=== PATIENT | female | born 1950 | race Caucasian/White ===

== ENCOUNTER 2024-02-04 07:49 | Emergency (ER) | payer BC, SELFPAY ==
[2024-02-04 07:58] VITALS: BP 119/73; PULSE 68; RESP 18; TEMP 36.2; O2SAT 95; BMI 43.0
--- NOTE | 2024-02-04 08:21 | CRLHL7_ITS ---
For Patients: As a result of the Century Cures Act, medical imaging exams and procedure reports are released immediately into your electronic medical record. You may view this report before your referring provider. If you have questions, please contact your health care provider. Indication: Low back pain Technique: Noncontrast axial CT of the lumbar spine with coronal and sagittal reformats. Comparison: None. Findings: The normal lumbar lordosis is preserved. No significant spondylolisthesis. Vertebral body heights are maintained. No acute fracture identified. Mild diffuse disc bulges in the lower lumbar levels, with mild facet arthropathy at L5-S1 contributing to mild bilateral L5-S1 neural foraminal narrowing. Remaining neural foramina and spinal canal appear widely patent. No suspicious findings in the prevertebral or paraspinal soft tissues. Included SI joints are unremarkable. Impression: 1. No evidence of acute fracture or traumatic malalignment in the lumbar spine. 2. Mild lower lumbar spondylosis as detailed. Please note that all CT scans at this facility use dose modulation, iterative reconstruction, and/or weight-based dosing when appropriate to reduce radiation dose to as low as reasonably achievable. Dictated by Liz Bo MD @ 02/04/2024 9:36:38 AM (Electronically Signed)
[2024-02-04] MEDS: KETOROLAC 30 MG/ML inj IM (08:35)
--- NOTE | 2024-02-04 09:03 | ED.BACK ---
HPI - Back Pain/Injury General Date Seen: 02/04/24 Chief Complaint: Back Injury/Pain Stated Complaint: back pain Time Seen by Provider: 02/04/24 08:01 Source: patient and family Mode of arrival: EMS Limitations: no limitations History of Present Illness HPI Narrative: Patient is a 73-year-old female presenting to emergency department today with her daughter. She is brought in by ambulance for back pain. She has frontotemporal dementia. Patient states she has been having back pain for quite a while now. Uncertain the exact length but states it got acutely worse yesterday and was so bad she could not get out of her chair. Her daughter came today to check on her and bring her to her dental appointment. Since the patient could not get out of the chair despite help from the daughter she called EMS to bring her to the emergency department. Patient states once police and EMS arrived the patient went from being very angry with the daughter to being very pleasant and then got up and walked with her walker. At this time patient states she is having pain in her low back but does not radiate anywhere else. Denies any injuries. Denies chest pain, shortness of breath, fevers, chills, urinary retention, saddle anesthesia, weakness, numbness. No other concerns noted. Her daughter is low concern that the patient is not adequately taking care of herself at home. The daughters an only child and is taking care both her mother and the patient's . The was recently diagnosed with frontotemporal dementia also, but the daughter states he refuses to accept it and expects the patient to take care of him. The patient's daughter does not believe she is able to at this time and is also concerned that the patient is in taking her medication as directed. She has tried to get her home health but has only been qualified for 1 hour a week so far. The patient had a recent primary care visit to try and help set up increased home health. Related Data Home Medications ?Medication ?Instructions ?Recorded ?Confirmed levothyroxine 25 mcg tablet 25 mcg PO QAM 02/04/24 02/04/24 metformin 500 mg tablet,extended 2,000 mg PO QPM 02/04/24 02/04/24 release 24 hr omeprazole 20 mg capsule,delayed 20 mg PO DAILY 02/04/24 02/04/24 release pioglitazone 15 mg tablet 15 mg PO DAILY 02/04/24 02/04/24 Allergies Allergy/AdvReac Type Severity Reaction Status Date / Time Penicillins Allergy Mild hives Verified 02/04/24 08:05 Review of Systems Status of ROS: Reports: 10 or more systems reviewed and unremarkable except as noted in History and below [facility] Social History Smoking Status: Smoker, status unknown Exam Narrative: Exam Narrative: Const: Well-nourished, Well-developed, in mild distress Eyes: PERRL, no conjunctival injection, and symmetrical lids HENT: Atraumatic external nose and ears. Moist mucous membranes. Neck: Symmetric, trachea midline, No thyromegaly. CVS: RRR, No murmurs or gallops. Peripheral pulses 2+ and equal in all extremities RESP: Unlabored respiratory effort. Clear to auscultation bilaterally. GI: Nontender/Nondistended, No rebound or guarding. MSK:Extremities w/o deformity, bilateral paraspinal back pain around L4 Skin: Warm, Dry. No rashes or lesions. Neuro: Normal Muscle tone, No focal neurological deficits. Psych: Awake, Alert, & Oriented x3. Appropriate mood and affect. Const: Vital Signs, click to edit/add: Vital Signs - 24 hr 02/04/24 07:58 Temperature 97.1 F L Pulse Rate [Pulse Oximeter] 68 Respiratory Rate 18 Blood Pressure [Ri ght Forearm] 119/73 Pulse Oximetry 95 Oxygen Delivery Me thod Room Air Course Vital Signs Vital signs: Initial Vital Signs Temperature 97.1 F L 02/04/24 07:58 Temperature Source Temporal Artery Scan 02/04/24 07:58 Pulse Rate 68 02/04/24 07:58 Respiratory Rate 18 02/04/24 07:58 Blood Pressure 119/73 02/04/24 07:58 Blood Pressure Mean 88 02/04/24 07:58 Blood Pressure Position Sitting 02/04/24 07:58 Pulse Oximetry 95 02/04/24 07:58 Oxygen Delivery Method Room Air 02/04/24 07:58 Vital Signs Temperature 97.1 F L 02/04/24 07:58 Pulse Rate 68 02/04/24 07:58 Respiratory Rate 18 02/04/24 07:58 Blood Pressure 119/73 12/16/24 07:58 Pulse Oximetry 95 02/04/24 07:58 Oxygen Delivery Method Room Air 02/04/24 07:58 Temperature 97.1 F L 02/04/24 07:58 Pulse Rate 68 02/04/24 07:58 Respiratory Rate 18 02/04/24 07:58 Blood Pressure 119/73 02/04/24 07:58 Pulse Oximetry 95 02/04/24 07:58 Oxygen Delivery Method Room Air 02/04/24 07:58 Medications Administered Medications: Discontinued Medications Generic Name Dose Route Start Last Admin Trade Name Александр PRN Reason Stop Dose Admin Ketorolac Tromethamine 30 mg 02/04/24 08:22 02/04/24 08:35 Ketorolac 30 Mg/Ml Inj IM 02/04/24 08:23 30 mg ONCE ONE Administration MDM - Back Pain/Injury MDM Narrative Medical decision making narrative: Patient is a 73-year-old female presenting for low back pain. Will do a CT scan to better evaluate. No acute injuries the but the patient is aware of. She has a frontotemporal dementia and has issues giving the best history. Will give her Toradol for pain as she had recently lab work done. construction services technician also consult at the daughter's request to try and help. Patient was able ambulate in the emergency department. CT scan shows no acute concerning abnormalities. I informed the daughter that everything looks well from our standpoint but they are able wait in the ED until social Work comes to see them. Social work did come and visit with the patient's daughter. She was able to give her some further information. At this point they are comfortable with discharge. Imaging Data CT scan lumbar spine: Attestation: I have reviewed the pertinent imaging results. Radiologist's impression: 1. No evidence of acute fracture or traumatic malalignment in the lumbar spine. 2. Mild lower lumbar spondylosis as detailed. Please note that all CT scans at this facility use dose modulation, iterative reconstruction, and/or weight-based dosing when appropriate to reduce radiation dose to as low as reasonably achievable. Dictated by Liz Bo MD @ 02/04/2024 9:36:38 AM Discharge Plan Discharge Clinical Impression: Strain of lumbar region Patient Disposition: Home w/ Parent or Adult Condition: Stable Instructions: Back Pain (ED) Additional Instructions: No acute concerning findings were seen on her CT scan and pain is likely from a muscle strain. Return to emergency department for new or worsening symptoms. Prescriptions: No Action pioglitazone 15 mg tablet 15 mg PO DAILY levothyroxine 25 mcg tablet 25 mcg PO QAM omeprazole 20 mg capsule,delayed release(DR/EC) 20 mg PO DAILY metformin 500 mg tablet extended release 24 hr 2,000 mg PO QPM Follow Up/Referrals: Jessica Meadows DO [Primary Care Provider] - Stand Alone Forms: [employer] Info Instructions
[2024-02-04 10:54] VITALS: BP 121/68; PULSE 64; RESP 18; TEMP 36.2
== END 2024-02-04 10:58 | disposition home or self-care (01) ==
PROVIDERS: Emergency Provider Student in an Organized Health Care Education/Training Program; PCP Family Medicine
DX: S39.012A Strain of muscle, fascia and tendon of lower back, initial encounter (principal)
CPT/HCPCS: 72131; 96372; 99283; 99284; J1885